=== PATIENT | female | born 1945 | race Caucasian/White ===

== ENCOUNTER → 2017-02-18 | Outpatient (CLI) | payer BC | END | disposition home or self-care (01) | LOC: KCIC US 11:34 | DX: N95.0 Postmenopausal bleeding (principal); D25.9 Leiomyoma of uterus, unspecified; N88.8 Other specified noninflammatory disorders of cervix uteri; Z87.42 Personal history of other diseases of the female genital tract | CPT/HCPCS: 76830; 76856 ==

== ENCOUNTER → 2017-05-13 | Day surgery (SDC) | payer BC ==
[~2017-05-13] MED LIST: 0.9 % SODIUM CHLORIDE 10 ML DISP.SYRIN. IV; BUPIVACAINE-EPI 0.25%-1:200000 50 ML VIAL.; CALCIUM CARBONATE 500 MG TAB.CHEW PO; DESFLURANE 61 TO 120 MINUTES IH; DEXAMETHASONE SOD PHOS 20 MG/5 ML VIAL.; FAMOTIDINE 20 MG/2 ML VIAL; GLYCOPYRROLATE 1 MG/5 ML VIAL.; HYDROcodone/APAP 5/325MG 1 TAB TABLET PO; HYDROmorphone 2 MG/ML VIAL IV; LABETALOL 20 MG/4 ML DISP.SYRIN.; LIDOCAINE 1% PF 2 ML VIAL. ID; MAG HYDROX/ALUMINUM HYD/SIMETH 30 ML ORAL.SUSP PO; MORPHINE SULFATE 4 MG/ML DISP.SYRIN. IV; NALOXONE 0.4 MG/ML VIAL. IV; NEOSTIGMINE 10 MG/10 ML VIAL.; ONDANSETRON PF 4 MG/2 ML VIAL.; PROCHLORPERAZINE 10 MG/2 ML VIAL. IV; PROPOFOL 20 ML IV; ROCURONIUM 50 MG/5 ML VIAL.; SIMETHICONE 80 MG TAB.CHEW PO; diphenhydrAMINE 50 MG/ML VIAL IV; diphenhydrAMINE HCL 25 MG CAPSULE PO; fentaNYL PF VIAL 100 MCG/2 ML VIAL; fentaNYL PF VIAL 100 MCG/2 ML VIAL IV
[2017-05-13] MEDS: IV RINGERS,LACTATED 1000ML 1,000 ML IV ×2 (06:34→10:58)
[2017-05-13 06:37] LABS: ADD MAN DIFF? NO
[2017-05-13 06:41] LABS: BASO # 0.1 x10^3/uL (0.0-0.2); BASO % 1 % (0-3); EOS # 0.2 x10^3/uL (0.0-0.7); EOS % 3 % (0-3); HEMATOCRIT 43.2 % (36.0-47.0); HEMOGLOBIN 13.9 g/dL (12.0-15.5); LYMPH # 1.3 x10^3/uL (1.0-4.8); LYMPH % 20 % (24-48); MEAN CORPUSCULAR HEMOGLOBIN 30 pg (25-35); MEAN CORPUSCULAR HGB CONC 32 g/dL (31-37); MEAN CORPUSCULAR VOLUME 94 fL (79-100); MONO # 0.5 x10^3/uL (0.0-1.1); MONO % 7 % (0-9); NEUT # 4.4 x10^3uL (1.8-7.7); NEUT % 69 % (31-73); PLATELET COUNT 131 x10^3/uL (140-400); RED CELL DISTRIBUTION WIDTH 14.5 % (11.5-14.5); WHITE BLOOD COUNT 6.3 x10^3/uL (4.0-11.0)
[2017-05-13] MEDS: POTASSIUM IODIDE/IODINE 14 ML SOLUTION. TP (08:21)
[2017-05-13] MEDS: ONDANSETRON PF 4 MG/2 ML VIAL. IV (10:58)
[2017-05-13] MEDS: KETOROLAC 15 MG/ML VIAL. IV (11:30)
[2017-05-13 12:51] LABS: ADD MAN DIFF? NO
[2017-05-13 12:55] LABS: BASO % 0 % (0-3); EOS % 0 % (0-3); HEMATOCRIT 43.3 % (36.0-47.0); HEMOGLOBIN 14.1 g/dL (12.0-15.5); LYMPH # 0.5 x10^3/uL (1.0-4.8); LYMPH % 5 % (24-48); MEAN CORPUSCULAR HEMOGLOBIN 31 pg (25-35); MEAN CORPUSCULAR HGB CONC 33 g/dL (31-37); MEAN CORPUSCULAR VOLUME 94 fL (79-100); MONO # 0.2 x10^3/uL (0.0-1.1); MONO % 1 % (0-9); NEUT # 10.1 x10^3uL (1.8-7.7); NEUT % 94 % (31-73); PLATELET COUNT 119 x10^3/uL (140-400); RED CELL DISTRIBUTION WIDTH 14.7 % (11.5-14.5); WHITE BLOOD COUNT 10.8 x10^3/uL (4.0-11.0)
[2017-05-13 13:03] LABS: ANION GAP 10 (6-14); CARBON DIOXIDE 28 mmol/L (21-32); CHLORIDE 104 mmol/L (98-107); POTASSIUM 3.7 mmol/L (3.5-5.1); SODIUM 142 mmol/L (136-145)
== END | disposition home or self-care (01) ==
LOC: SURG 05:31
DX: D06.0 Carcinoma in situ of endocervix (principal); N72 Inflammatory disease of cervix uteri; N88.8 Other specified noninflammatory disorders of cervix uteri; D25.9 Leiomyoma of uterus, unspecified
CPT/HCPCS: 36415; 80051; 85025; 88305; 88307; J1100; J1885; J2405; J2704; J2710; J3010; J3490; J7120; S0028

== ENCOUNTER 2017-10-12 20:35 | Emergency (ER) | payer BC ==
[~2017-10-12] VITALS: Ht 149.9 cm; Wt 121.6 kg
[~2017-10-12 20:35] MED LIST changes: -0.9 % SODIUM CHLORIDE 10 ML DISP.SYRIN. IV; -BUPIVACAINE-EPI 0.25%-1:200000 50 ML VIAL.; -CALCIUM CARBONATE 500 MG TAB.CHEW PO; +CYCL10TA2 PO; -DESFLURANE 61 TO 120 MINUTES IH; -DEXAMETHASONE SOD PHOS 20 MG/5 ML VIAL.; -FAMOTIDINE 20 MG/2 ML VIAL; -GLYCOPYRROLATE 1 MG/5 ML VIAL.; -HYDROcodone/APAP 5/325MG 1 TAB TABLET PO; -HYDROmorphone 2 MG/ML VIAL IV; -LABETALOL 20 MG/4 ML DISP.SYRIN.; -LIDOCAINE 1% PF 2 ML VIAL. ID; -MAG HYDROX/ALUMINUM HYD/SIMETH 30 ML ORAL.SUSP PO; -MORPHINE SULFATE 4 MG/ML DISP.SYRIN. IV; -NALOXONE 0.4 MG/ML VIAL. IV; +NAPR-514 PO; -NEOSTIGMINE 10 MG/10 ML VIAL.; -ONDANSETRON PF 4 MG/2 ML VIAL.; -PROCHLORPERAZINE 10 MG/2 ML VIAL. IV; -PROPOFOL 20 ML IV; -ROCURONIUM 50 MG/5 ML VIAL.; -SIMETHICONE 80 MG TAB.CHEW PO; -diphenhydrAMINE 50 MG/ML VIAL IV; -diphenhydrAMINE HCL 25 MG CAPSULE PO; -fentaNYL PF VIAL 100 MCG/2 ML VIAL; -fentaNYL PF VIAL 100 MCG/2 ML VIAL IV
--- NOTE | 2017-10-12 21:18 | PHYS DOC ---
Adult General Chief Complaint Chief Complaint: ABDOMINAL PAIN HPI HPI Patient is a 72 year old female who presents complaining over constant throbbing 10 out of 10 generalized abdominal pain that has been going on for 6 days. Patient denies any nausea vomiting. Denies any fever. She states she thought she was constipated, she states she had a good normal bowel movement today. Patient states the pain did not improve. Patient states the pain gets worse when she eats. Patient denies any diarrhea. She states she does not have any chronic medical conditions. She states she's had one abdominal surgery for hernia repair a couple years ago. PCP Dr. Marie Review of Systems Review of Systems Constitutional: Denies fever or chills [] Eyes: Denies change in visual acuity, redness, or eye pain [] HENT: Denies nasal congestion or sore throat [] Respiratory: Denies cough or shortness of breath [] Cardiovascular: No additional information not addressed in HPI [] GI: Reports generalized abdominal pain, denies nausea, vomiting, bloody stools or diarrhea [] : Denies dysuria or hematuria [] Musculoskeletal: Denies back pain or joint pain [] Integument: Denies rash or skin lesions [] Neurologic: Denies headache, focal weakness or sensory changes [] All other systems were reviewed and found to be within normal limits, except as documented in this note. Current Medications Current Medications Current Medications Medications (Trade) Dose Ordered Sig/Kate Start Time Stop Time Status Last Admin Dose Admin Info (CONTRAST GIVEN -- Rx MONITORING) 1 each PRN DAILY PRN 10/12/17 22:30 10/14/17 22:29 Iohexol (Omnipaque 300 Mg/ml) 60 ml 1X ONCE 10/12/17 23:00 10/12/17 23:01 DC 10/12/17 22:32 60 ML Morphine Sulfate (Morphine Sulfate) 5 mg 1X ONCE 10/12/17 21:30 10/12/17 21:31 DC 10/12/17 21:46 5 MG Ondansetron HCl (Zofran) 4 mg 1X ONCE 10/12/17 21:30 10/12/17 21:31 DC 10/12/17 21:44 4 MG Pantoprazole Sodium (PROTONIX VIAL for IV PUSH) 40 mg 1X ONCE 10/12/17 21:30 10/12/17 21:31 DC 10/12/17 21:45 40 MG Sodium Chloride 1,000 ml @ 1,000 mls/hr 1X ONCE 10/12/17 21:30 10/12/17 22:29 DC 10/12/17 21:44 1,000 MLS/HR Allergies Allergies Allergies Coded Allergies Type Severity Reaction Last Updated Verified No Known Drug Allergies 05/13/17 No Physical Exam Physical Exam Constitutional: Well developed, well nourished, no acute distress, non-toxic appearance. [] HENT: Normocephalic, atraumatic, bilateral external ears normal, oropharynx moist, no oral exudates, nose normal. [] Eyes: PERRLA, EOMI, conjunctiva normal, no discharge. [] Neck: Normal range of motion, no tenderness, supple, no stridor. [] Cardiovascular:Heart rate regular rhythm, no murmur [] Lungs & Thorax: Bilateral breath sounds clear to auscultation [] Abdomen: Obese rounded abdomen, diffuse tenderness throughout, no point tenderness to the right upper quadrant or right lower quadrant, negative Mahajan sign. Negative psoas sign, negative obturator sign. Bowel sounds normal, soft, no masses, no pulsatile masses. [] Skin: Warm, dry, no erythema, no rash. [] Back: No tenderness, no CVA tenderness. [] Extremities: No tenderness, no cyanosis, no clubbing, ROM intact, no edema. [] Neurologic: Alert and oriented X 3, normal motor function, normal sensory function, no focal deficits noted. [] Psychologic: Affect normal, judgement normal, mood normal. [] Current Patient Data Vital Signs Vital Signs Date Time Temp Pulse Resp B/P (MAP) Pulse Ox O2 Delivery O2 Flow Rate FiO2 10/12/17 21:46 18 97 Room Air 10/12/17 20:45 98.6 88 225/102 (143) 98.6 Lab Values Laboratory Tests Test 10/12/17 21:35 10/12/17 21:50 Urine Collection Type Unknown Urine Color Yellow Urine Clarity Clear Urine pH 6.0 Urine Specific [place] 1.025 Urine Protein Negative mg/dL (NEG-TRACE) Urine Glucose (UA) Negative mg/dL (NEG) Urine Ketones (Stick) Negative mg/dL (NEG) Urine Blood Negative (NEG) Urine Nitrite Negative (NEG) Urine Bilirubin Negative (NEG) Urine Urobilinogen Dipstick 2.0 mg/dL (0.2 mg/dL) Urine Leukocyte Esterase Negative (NEG) Urine RBC Occ /HPF (0-2) Urine WBC 1-4 /HPF (0-4) Urine Squamous Epithelial Cells Mod /LPF Urine Bacteria Few /HPF (0-FEW) Urine Hyaline Casts Occasional /HPF Urine Mucus Marked /LPF Urine Opiates Screen Neg (NEG) Urine Methadone Screen Neg (NEG) Urine Barbiturates Neg (NEG) Urine Phencyclidine Screen Neg (NEG) Urine Amphetamine/Methamphetamine Neg (NEG) Urine Benzodiazepines Screen Neg (NEG) Urine Cocaine Screen Neg (NEG) Urine Cannabinoids Screen Neg (NEG) Urine Ethyl Alcohol Neg (NEG) White Blood Count 7.4 x10^3/uL (4.0-11.0) Red Blood Count 4.38 x10^6/uL (3.50-5.40) Hemoglobin 13.4 g/dL (12.0-15.5) Hematocrit 41.0 % (36.0-47.0) Mean Corpuscular Volume 93 fL (79-100) Mean Corpuscular Hemoglobin 31 pg (25-35) Mean Corpuscular Hemoglobin Concent 33 g/dL (31-37) Red Cell Distribution Width 15.0 % (11.5-14.5) H Platelet Count 133 x10^3/uL (140-400) L Neutrophils (%) (Auto) 80 % (31-73) H Lymphocytes (%) (Auto) 10 % (24-48) L Monocytes (%) (Auto) 7 % (0-9) Eosinophils (%) (Auto) 2 % (0-3) Basophils (%) (Auto) 1 % (0-3) Neutrophils # (Auto) 5.9 x10^3uL (1.8-7.7) Lymphocytes # (Auto) 0.7 x10^3/uL (1.0-4.8) L Monocytes # (Auto) 0.5 x10^3/uL (0.0-1.1) Eosinophils # (Auto) 0.2 x10^3/uL (0.0-0.7) Basophils # (Auto) 0.1 x10^3/uL (0.0-0.2) Sodium Level 143 mmol/L (136-145) Potassium Level 4.0 mmol/L (3.5-5.1) Chloride Level 106 mmol/L (98-107) Carbon Dioxide Level 29 mmol/L (21-32) Anion Gap 8 (6-14) Blood Urea Nitrogen 14 mg/dL (7-20) Creatinine 1.0 mg/dL (0.6-1.0) Estimated GFR (Cockcroft-Gault) 54.8 BUN/Creatinine Ratio 14 (6-20) Glucose Level 98 mg/dL (70-99) Calcium Level 9.5 mg/dL (8.5-10.1) Total Bilirubin 0.6 mg/dL (0.2-1.0) Aspartate Amino Transferase (AST) 20 U/L (15-37) Alanine Aminotransferase (ALT) 26 U/L (14-59) Alkaline Phosphatase 105 U/L (46-116) Total Protein 8.2 g/dL (6.4-8.2) Albumin 3.8 g/dL (3.4-5.0) Albumin/Globulin Ratio 0.9 (1.0-1.7) L Lipase 222 U/L (73-393) Ethyl Alcohol Level < 10 mg/dL (0-10) Laboratory Tests 10/12/17 21:50 Laboratory Tests 10/12/17 21:50 EKG EKG [] Radiology/Procedures Radiology/Procedures []PROCEDURE: CT ABD PELV W/ IV CONTRST ONLY PQRS Compliance statement: One or more of the following individualized dose reduction techniques were utilized for this examination: 1. Automated exposure control. 2. Adjustment of the mA and/or kV according to patient size. 3. Use of iterative reconstruction technique. Indication:generalized abd pain since , [id number] 60ml, prior sent TECHNIQUE: CT abdomen and pelvis with IV contrast with multiplanar reformats. COMPARISON: 11/11/2011 FINDINGS: Heart is normal in size. Calcified right hilar lymph node seen. Clear lung bases. Liver, spleen, pancreas, adrenals, gallbladder within normal limits. No nephrolithiasis or hydronephrosis. No enlarged retroperitoneal or pelvic adenopathy. Anterior midline pelvic wall hernia is seen containing loops of small bowel with neck measuring 3.5 cm. The hernia sac measures approximately 8.2 x 5 0 cm. No bowel obstruction. Sigmoid and descending colon diverticulosis. Appendix is not visualized. Urinary bladder is suboptimally distended however is within normal limits. The cervix appears bulky measuring 6.8 x 6.6 cm. Anteverted uterus. No suspicious bony lesion. IMPRESSION: 1. Small anterior midline lower pelvic wall hernia containing loop of small bowel and trace ascites. No bowel obstruction. 2. Mild sigmoid and descending colon diverticulosis without diverticulitis. 3. Bulky cervix. Clinically correlate with physical exam to rule out cervical mass. Findings are new when compared to previous study from 2012. Electronically signed by: Francisco Shah DO (10/12/2017 10:51 PM) [facility] DICTATED and SIGNED BY: FRANCISCO SHAH DO DATE: 10/12/17 8962 Course & Med Decision Making Course & Med Decision Making Pertinent Labs and Imaging studies reviewed. (See chart for details) This is a 9-year-old female patient presenting to the ED today with generalized abdominal pain that began 6 days ago. Patient's labs are negative for any acute findings. Urine analysis is negative for infection, CT of the abdomen and pelvic was noted for-Bulky cervix. Clinically correlate with physical exam to rule out cervical mass. Spoke to patient about CT results, she states she is aware she has cervix issue going on. She states she was seen by the [facility]GNITION MECH[facility]IC a couple months ago and they did a biopsy. Patient states she the biopsy results were negative. Informed patient I would like her to follow-up with her [facility]GNITION MECH[facility] and have them look at the cervical mass she has again. Discharged with hydrocodone as needed for pain. She follows up with [facility]. MiraLAX also recommended to prevent constipation from the pain medicine. Dragon Disclaimer Dragon Disclaimer This electronic medical record was generated, in whole or in part, using a voice recognition dictation system. Departure Departure Impression: Primary Impression: Abdominal pain Additional Impression: Cervical mass Disposition: HOME, SELF-CARE Condition: STABLE Referrals: MARNIE LUEVANO DO (PCP) Follow-up with your [facility] at [facility] as soon as you can Patient Instructions: Abdominal Pain Additional Instructions: You were evaluated in the emergency room and noted to have a cervical mass. Please follow-up with your IGNITION MECH[facility]IC as soon as possible. Come back to the emergency room at any point symptoms worsen. Take the prescribed medications as needed for pain. Ensure you take MiraLAX every day to prevent constipation from the pain medicine. Scripts Ondansetron (ZOFRAN ODT) 4 Mg Tab.rapdis 1 TAB SL Q8HRS, #15 TAB Prov: DMITRI CA APRN 10/12/17 Polyethylene Glycol 3350 (MIRALAX) 17 Gm Powd.pack 1 PACKET PO DAILY, #30 PACKET 3 Refills Prov: DMITRI CA APRN 10/12/17 Hydrocodone/Apap 5-325 (NORCO 5-325 TABLET) 1 Each Tablet 1 TAB PO Q6HRS PRN for PAIN, #14 TAB Prov: DMITRI CA APRN 10/12/17 Problem Qualifiers Primary Impression: Abdominal pain Abdominal location: lower abdomen, unspecified Qualified Codes: R10.30 - Lower abdominal pain, unspecified DMITRI CA APRN Oct 12, 2017 21:18
[2017-10-12] MEDS: IV NORMAL SALINE 1000ML BAG 1,000 ML IV ONE (21:44)
[2017-10-12] MEDS: ONDANSETRON PF 4 MG/2 ML VIAL. IV ONE (21:44)
[2017-10-12] MEDS: PANTOPRAZOLE IV PUSH 40 MG VIAL. IVP ONE (21:45)
[2017-10-12] MEDS: MORPHINE SULFATE 10 MG/ML VIAL. IV ONE (21:46)
[2017-10-12 21:47] LABS: BILIRUBIN,URINE NEGATIVE (NEG); CLARITY,URINE CLEAR; COLOR,URINE YELLOW; NITRITE,URINE NEGATIVE (NEG); PROTEIN,URINE NEGATIVE (NEG-TRACE)
[2017-10-12 21:58] LABS: RBC,URINE OCC /HPF (0-2); SQUAMOUS EPITHELIAL CELL,UR MOD /LPF
[2017-10-12 21:59] LABS: BACTERIA,URINE FEW /HPF (0-FEW); HYALINE CASTS, URINE OCCASIONAL /HPF
[2017-10-12 22:03] LABS: BASO # 0.1 x10^3/uL (0.0-0.2); BASO % 1 % (0-3); EOS # 0.2 x10^3/uL (0.0-0.7); EOS % 2 % (0-3); HEMOGLOBIN 13.4 g/dL (12.0-15.5); LYMPH # 0.7 x10^3/uL (1.0-4.8); LYMPH % 10 % (24-48); MEAN CORPUSCULAR HEMOGLOBIN 31 pg (25-35); MEAN CORPUSCULAR HGB CONC 33 g/dL (31-37); MEAN CORPUSCULAR VOLUME 93 fL (79-100); MONO # 0.5 x10^3/uL (0.0-1.1); MONO % 7 % (0-9); NEUT # 5.9 x10^3uL (1.8-7.7); NEUT % 80 % (31-73); PLATELET COUNT 133 x10^3/uL (140-400); RED BLOOD COUNT 4.38 x10^6/uL (3.50-5.40); WHITE BLOOD COUNT 7.4 x10^3/uL (4.0-11.0)
[2017-10-12 22:12] LABS: BARBITURATES NEG (NEG); BENZODIAZEPINES NEG (NEG); CANNABINOIDS NEG (NEG); COCAINE NEG (NEG); METHADONE NEG (NEG); OPIATES NEG (NEG); PHENCYCLIDINE NEG (NEG)
[2017-10-12 22:13] LABS: CALCIUM 9.5 mg/dL (8.5-10.1); GFR 54.8
[2017-10-12 22:17] LABS: AMPHETAMINE/METHAMPHETAMINE NEG (NEG)
[2017-10-12 22:19] LABS: ALBUMIN 3.8 g/dL (3.4-5.0); ALBUMIN/GLOBULIN RATIO 0.9 (1.0-1.7); TOTAL BILIRUBIN 0.6 mg/dL (0.2-1.0); TOTAL PROTEIN 8.2 g/dL (6.4-8.2)
[2017-10-12] MEDS ORDERED: CONTRAST GIVEN. MC PRN (22:30)
[2017-10-12] MEDS: IOHEXOL 300 MG/ML 100ML VIAL. IV ONE (22:32)
--- NOTE | 2017-10-12 22:54 | RAD ---
PQRS Compliance statement: One or more of the following individualized dose reduction techniques were utilized for this examination: 1. Automated exposure control. 2. Adjustment of the mA and/or kV according to patient size. 3. Use of iterative reconstruction technique. Indication:generalized abd pain since , [id number] 60ml, prior sent TECHNIQUE: CT abdomen and pelvis with IV contrast with multiplanar reformats. COMPARISON: 11/11/2011 FINDINGS: Heart is normal in size. Calcified right hilar lymph node seen. Clear lung bases. Liver, spleen, pancreas, adrenals, gallbladder within normal limits. No nephrolithiasis or hydronephrosis. No enlarged retroperitoneal or pelvic adenopathy. Anterior midline pelvic wall hernia is seen containing loops of small bowel with neck measuring 3.5 cm. The hernia sac measures approximately 8.2 x 5 0 cm. No bowel obstruction. Sigmoid and descending colon diverticulosis. Appendix is not visualized. Urinary bladder is suboptimally distended however is within normal limits. The cervix appears bulky measuring 6.8 x 6.6 cm. Anteverted uterus. No suspicious bony lesion. IMPRESSION: 1. Small anterior midline lower pelvic wall hernia containing loop of small bowel and trace ascites. No bowel obstruction. 2. Mild sigmoid and descending colon diverticulosis without diverticulitis. 3. Bulky cervix. Clinically correlate with physical exam to rule out cervical mass. Findings are new when compared to previous study from 2012. Electronically signed by: Francisco Shah DO (10/12/2017 10:51 PM) [facility]
[2017-10-12] MEDS ORDERED: HYDR-971 PO (23:47)
[2017-10-12] MEDS ORDERED: ONDA4TAB10 SL (23:47)
[2017-10-12] MEDS ORDERED: POLY17PO29 PO (23:47)
[2017-10-13 00:27] VITALS: BP 189/88
== END 2017-10-13 00:29 | disposition home or self-care (01) ==
LOC: ER 20:35
DX: N88.8 Other specified noninflammatory disorders of cervix uteri (principal); R10.84 Generalized abdominal pain; K59.00 Constipation, unspecified; E66.9 Obesity, unspecified; Z68.43 Body mass index [BMI] 50.0-59.9, adult
CPT/HCPCS: 36415; 74177; 80053; 80307; 81001; 83690; 85025; 96374; 96375; 99285; C9113; G0480; J2270; J2405; J7030; Q9967; G0479

== ENCOUNTER → 2021-01-22 | Outpatient (CLI) | payer BC ==
[~2021-01-22] MED LIST changes: +CYCL10TA19 PO; -CYCL10TA2 PO; +HYDR-3164 PO; +ONDA4TAB10 SL; +POLY17PO29 PO
--- NOTE | 2021-01-22 16:21 | KCIC ---
EXAM: Dual energy x-ray absorptiometry (DEXA). HISTORY: Postmenopausal. COMPARISON: None. TECHNIQUE: Dual energy x-ray absorptiometry of the lumbar spine and left hip was performed. Calculat ion of bone mineral density based on standard deviations above or below the expected young adult norm al value (T-score) was completed. FINDINGS: LUMBAR SPINE: The AVG BMD OF the L1-L4 region = 0.998 gm/cm2, T-score = -0.4, Z-score = 1.9. Findings are consistent with normal BMD. Femoral Necks: The BMD of the left femoral neck = 0.771 gm/cm2, T-score = -1.4, Z-score = 0.3. The Findings are consistent with osteopenia. IMPRESSION: Findings demonstrate osteopenia in the left hip and normal bone mineral density in the spine. Electronically signed by: Leonardo Parrish MD (01/22/2021 4:18 PM) [id number]
== END ==
LOC: KCIC DEXA 12:25
PROVIDERS: ATTEND Family Medicine
DX: M85.88 Other specified disorders of bone density and structure, other site (principal); N95.8 Other specified menopausal and perimenopausal disorders; Z78.0 Asymptomatic menopausal state
CPT/HCPCS: 77080

== ENCOUNTER → 2021-02-10 | Outpatient (CLI) | payer BC ==
[~2021-02-10] MED LIST changes: +BUPIVACAINE MPF 0.5% 10 ML VIAL. IJ ONE; +CONTRAST GIVEN. MC PRN; +IOHEXOL 300 MG/ML 50 ML VIAL. IJ ONE; +LIDOCAINE 1% Multi-Dose 20 ML VIAL. INJ ONE; +TRIAMCINOLONE ACETONIDE 40 MG/ML VIAL. INT ART ONE
--- NOTE | 2021-02-10 13:46 | RAD ---
EXAM: Fluoroscopic guided therapeutic right hip injection. HISTORY: Pain. TECHNIQUE: The risks of the procedure were discussed with the patient and written and verbal consent was obtained. A timeout was performed. Fluoroscopic imaging of the right was performed and a site ove rlying the joint space was selected for needle entry. The skin overlying this region was sterilely pr epped, draped and infiltrated with 1% lidocaine. A spinal needle was then advanced into the joint spa ce with fluoroscopic guidance. Appropriate needle tip positioning was confirmed with injection of 3 c c of Omnipaque 300 contrast. Subsequently, a solution containing 2 cc of lidocaine 0.5 percent, 1 cc lidocaine 1 percent, and 40 mg Kenalog was injected into the joint space. Fluoroscopic images demonst rate intraarticular accumulation of contrast. The needle was removed and a sterile bandage was placed at the needle entry site. The patient tolerated the procedure without difficulty and was discharged in stable condition. 2 fluoroscopic images were obtained. The total fluoroscopy time was less than 30 seconds.. IMPRESSION: Successful fluoroscopic guided therapeutic right hip injection. Electronically signed by: Pamela Centeno MD (02/10/2021 1:44 PM) [id number]
== END | disposition home or self-care (01) ==
LOC: RAD 13:12
PROVIDERS: ATTEND Orthopaedic Surgery
DX: M25.551 Pain in right hip (principal); E66.9 Obesity, unspecified; M19.90 Unspecified osteoarthritis, unspecified site; F17.210 Nicotine dependence, cigarettes, uncomplicated; Z79.899 Other long term (current) drug therapy; Z98.890 Other specified postprocedural states
CPT/HCPCS: 20610; 77002; J3301; J3490; Q9967